=== PATIENT | female | born 1940 | race Caucasian/White ===

== ENCOUNTER 2022-09-22 11:30 | Emergency (ER) | payer MEDICARE ==
[2022-09-22] MEDS ORDERED: Adenosine 6 MG/2 ML SDV ONE (11:44)
[2022-09-22] MEDS ORDERED: Verapamil 5 MG/2 ML SDV IVPUSH ONE (11:50)
[2022-09-22] MEDS ORDERED: Adenosine 6 MG/2 ML SDV IVPUSH ONE (11:50)
[2022-09-22] MEDS ORDERED: Sodium Chloride 0.9% 1,000 ML IV SCH (12:00)
[2022-09-22 12:15] LABS: ESTIMATED GFR 57 mL/min (>60); TROPONIN I HIGH SENSITIVITY 12.5 pg/mL (<=60.3)
[2022-09-22] MEDS ORDERED: Metoprolol Succinate 25 MG Tab.ER PO ONE (12:15)
== END 2022-09-22 12:57 | disposition home or self-care (01) ==
LOC: JP.ED 11:30
DX: I47.9 Paroxysmal tachycardia, unspecified (principal); Z88.1 Allergy status to other antibiotic agents; Z88.2 Allergy status to sulfonamides; Z91.041 Radiographic dye allergy status; Z88.8 Allergy status to other drugs, medicaments and biological substances; Z79.899 Other long term (current) drug therapy
CPT/HCPCS: 36415; 80053; 84443; 84484; 85025; 93005; 96361; 96374; 96375; 99285; A9270; J0153; J7030; J3490

== ENCOUNTER 2022-12-06 18:59 | Emergency (ER) | payer MEDICARE | END 2022-12-06 21:08 | disposition home or self-care (01) | LOC: JP.ED 18:59 | DX: R10.2 Pelvic and perineal pain (principal); L98.8 Other specified disorders of the skin and subcutaneous tissue; I48.91 Unspecified atrial fibrillation; I10 Essential (primary) hypertension; Z88.1 Allergy status to other antibiotic agents; Z91.041 Radiographic dye allergy status; Z88.8 Allergy status to other drugs, medicaments and biological substances; Z79.899 Other long term (current) drug therapy | CPT/HCPCS: 81001; 87086; 87088; 87186; 99282; 99283 ==

== ENCOUNTER 2024-09-25 14:25 | Inpatient (IN) | payer MEDICARE ==
[2024-09-25] MEDS ORDERED: Sennosides/Docusate Sodium 50-8.6 MG Tab PO PRN (15:18)
[2024-09-25] MEDS ORDERED: Sodium Chloride 0.9% 10 ML Syringe FLUSH PRN (15:18)
[2024-09-25] MEDS ORDERED: Ondansetron 4 MG/2 ML SDV IV PRN (15:18)
[2024-09-25] MEDS ORDERED: Magnesium Hydroxide 400 MG/5 ML Susp 30 ML Cup PO PRN (15:18)
[2024-09-25] MEDS ORDERED: Ondansetron 4 MG Tab.DIS PO PRN (15:18)
[2024-09-25 15:38] LABS: HEMATOCRIT 35.9 % (34.3-46.0); MEAN CORPUSCULAR HEMOGLOBIN 29.4 pg (31.6-35.5); MEAN CORPUSCULAR HGB CONC 33.4 g/dL (31.6-35.5); RED BLOOD CELL COUNT 4.08 M/uL (3.77-5.24); WHITE BLOOD CELL COUNT,WBC 7.9 K/uL (3.2-11.0)
[2024-09-25 15:55] LABS: C-REACTIVE PROTEIN 13.51 mg/dL (<0.50); CREATININE 0.9 mg/dL (0.6-1.0); EST CRCL DRUG DOSING (CG) 39.87 mL/min; POTASSIUM,K 3.8 mmol/L (3.6-5.2)
[2024-09-25 15:57] LABS: ANION GAP 12.8 mmol/L (5.0-14.0)
[2024-09-25] MEDS ORDERED: cefTRIAXone 2 GM in Sodium Chloride 0.9% 50 ML IV SCH (16:00)
[2024-09-25] MEDS: Doxycycline 100 MG Cap PO SCH (17:21)
[2024-09-25] MEDS: cefTRIAXone 2 GM in Water For Injection, Sterile 20 ML IV SCH (17:28)
[2024-09-25] MEDS: guaiFENesin/Dextromethorphan 100-10 MG/5 ML Soln 10 ML Cup PO PRN (17:28)
[2024-09-25] MEDS: Lactobacillus Rhamnosus GG (Probiotic) Cap PO SCH (20:19)
[2024-09-25] MEDS: Melatonin 3 MG Tab PO PRN (20:19)
[2024-09-25] MEDS: LORazepam 0.5 MG Tab PO PRN (20:19)
[2024-09-25] MEDS: Acetaminophen 325 MG Tab PO PRN (20:20)
[2024-09-25] MEDS: Benzonatate 100 MG Cap PO PRN (20:20)
[2024-09-25] MEDS: busPIRone 5 MG Tab PO SCH (22:21)
[2024-09-25] MEDS: Sertraline 50 MG Tab PO SCH (22:22)
[2024-09-25] MEDS: Fluorometholone 0.1% Ophth Susp 5 ML Bottle EYEBOTH SCH (22:22)
[2024-09-26] MEDS: Albuterol 0.083% 2.5 MG/3 ML Neb Soln NEB PRN (06:18)
[2024-09-26] MEDS: Pantoprazole 40 MG Tab.CR PO SCH (07:49)
[2024-09-26] MEDS: Levothyroxine 50 MCG Tab PO SCH (07:49)
[2024-09-26] MEDS: Cholecalciferol (Vitamin D3) 25 MCG Tab PO SCH (09:32)
[2024-09-26] MEDS: Metoprolol Succinate 50 MG Tab.ER PO SCH (09:32)
[2024-09-26] MEDS: buPROPion 150 MG Tab.ER PO SCH (09:32)
[2024-09-26] MEDS: Fenofibrate,Micronized 67 MG Cap PO SCH (09:33)
[2024-09-26] MEDS: Losartan 50 MG Tab PO SCH (09:33)
[2024-09-26] MEDS: glipiZIDE 5 MG Tab PO SCH (09:33)
[2024-09-26] MEDS: amLODIPine 5 MG Tab PO SCH (09:33)
[2024-09-26] MEDS: Aspirin 81 MG Tab.EC PO SCH (09:33)
[2024-09-26] MEDS: Fluorometholone 0.1% Ophth Susp 5 ML Bottle EYEBOTH SCH (09:34)
[2024-09-26] MEDS: methylPREDNISolone Sodium Succinate 40 MG/1 ML SDV IVPUSH SCH (10:49)
[2024-09-26] MEDS: traZODone 50 MG Tab PO SCH (20:31)
[2024-09-27 05:28] LABS: HEMATOCRIT 33.3 % (34.3-46.0); HEMOGLOBIN 11.2 g/dL (11.2-15.5); MEAN CORPUSCULAR HEMOGLOBIN 29.3 pg (31.6-35.5); MEAN CORPUSCULAR HGB CONC 33.6 g/dL (31.6-35.5); MEAN CORPUSCULAR VOLUME 87.2 fL (81.4-99.0); RED BLOOD CELL COUNT 3.82 M/uL (3.77-5.24); WHITE BLOOD CELL COUNT,WBC 7.5 K/uL (3.2-11.0)
[2024-09-27 05:51] LABS: A/G RATIO 0.8 (1.2-2.2); ALANINE AMINOTRANSFERASE,ALT 19 U/L (12-78); ALBUMIN 2.5 g/dL (3.4-5.0); ALKALINE PHOSPHATASE 94 U/L (46-116); ASPARTATE AMNIOTRANSFERASE,AST 24 U/L (15-37); BILIRUBIN TOTAL 0.3 mg/dL (0.2-1.0); BLOOD UREA NITROGEN,BUN 21 mg/dL (7-18); C-REACTIVE PROTEIN 9.13 mg/dL (<0.50); CARBON DIOXIDE,CO2 27 mmol/L (21-32); CHLORIDE,CL 104 mmol/L (100-108); CREATININE 0.8 mg/dL (0.6-1.0); EST CRCL DRUG DOSING (CG) 44.85 mL/min; ESTIMATED GFR 74 mL/min (>60); GLUCOSE RANDOM 193 mg/dL (74-106); POTASSIUM,K 3.7 mmol/L (3.6-5.2); PROTEIN TOTAL,TP 5.8 g/dL (6.4-8.2); SODIUM,NA 138 mmol/L (140-148)
[2024-09-27 06:03] LABS: ANION GAP 10.7 mmol/L (5.0-14.0)
[2024-09-27] MEDS: ESTRACE 0.01% TOP SCH (09:13)
[2024-09-27] MEDS: ALAVERT D PO PRN (12:43)
[2024-09-27] MEDS: Loperamide 2 MG Cap PO PRN (12:43)
[2024-09-28 05:22] LABS: MEAN CORPUSCULAR HEMOGLOBIN 29.4 pg (31.6-35.5); MEAN CORPUSCULAR HGB CONC 33.3 g/dL (31.6-35.5); MEAN CORPUSCULAR VOLUME 88.2 fL (81.4-99.0); RED BLOOD CELL COUNT 3.74 M/uL (3.77-5.24); WHITE BLOOD CELL COUNT,WBC 8.8 K/uL (3.2-11.0)
[2024-09-28 05:50] LABS: A/G RATIO 0.7 (1.2-2.2); ALANINE AMINOTRANSFERASE,ALT 18 U/L (12-78); ALBUMIN 2.4 g/dL (3.4-5.0); ALKALINE PHOSPHATASE 90 U/L (46-116); ANION GAP 6.3 mmol/L (5.0-14.0); ASPARTATE AMNIOTRANSFERASE,AST 21 U/L (15-37); BILIRUBIN TOTAL 0.3 mg/dL (0.2-1.0); BLOOD UREA NITROGEN,BUN 27 mg/dL (7-18); C-REACTIVE PROTEIN 5.38 mg/dL (<0.50); CALCIUM 9.1 mg/dL (8.5-10.1); CARBON DIOXIDE,CO2 29 mmol/L (21-32); CHLORIDE,CL 105 mmol/L (100-108); CREATININE 0.8 mg/dL (0.6-1.0); EST CRCL DRUG DOSING (CG) 44.85 mL/min; ESTIMATED GFR 74 mL/min (>60); GLUCOSE RANDOM 147 mg/dL (74-106); POTASSIUM,K 3.8 mmol/L (3.6-5.2); PROTEIN TOTAL,TP 5.7 g/dL (6.4-8.2); SODIUM,NA 140 mmol/L (140-148)
[2024-09-29 05:11] LABS: HEMATOCRIT 32.4 % (34.3-46.0); HEMOGLOBIN 10.9 g/dL (11.2-15.5); MEAN CORPUSCULAR HEMOGLOBIN 29.4 pg (31.6-35.5); MEAN CORPUSCULAR HGB CONC 33.6 g/dL (31.6-35.5); MEAN CORPUSCULAR VOLUME 87.3 fL (81.4-99.0); RED BLOOD CELL COUNT 3.71 M/uL (3.77-5.24); WHITE BLOOD CELL COUNT,WBC 8.5 K/uL (3.2-11.0)
[2024-09-29 05:33] LABS: A/G RATIO 0.7 (1.2-2.2); ALANINE AMINOTRANSFERASE,ALT 19 U/L (12-78); ALBUMIN 2.2 g/dL (3.4-5.0); ALKALINE PHOSPHATASE 93 U/L (46-116); ANION GAP 8.4 mmol/L (5.0-14.0); ASPARTATE AMNIOTRANSFERASE,AST 17 U/L (15-37); BILIRUBIN TOTAL 0.3 mg/dL (0.2-1.0); BLOOD UREA NITROGEN,BUN 27 mg/dL (7-18); C-REACTIVE PROTEIN 3.23 mg/dL (<0.50); CALCIUM 8.8 mg/dL (8.5-10.1); CARBON DIOXIDE,CO2 28 mmol/L (21-32); CHLORIDE,CL 104 mmol/L (100-108); CREATININE 0.8 mg/dL (0.6-1.0); EST CRCL DRUG DOSING (CG) 44.85 mL/min; ESTIMATED GFR 74 mL/min (>60); GLUCOSE RANDOM 117 mg/dL (74-106); POTASSIUM,K 3.6 mmol/L (3.6-5.2); PROTEIN TOTAL,TP 5.4 g/dL (6.4-8.2); SODIUM,NA 140 mmol/L (140-148)
== END 2024-09-29 12:55 | disposition home health service (06) | DRG 193 ==
LOC: OBSVTOIN 14:25 → JP.ICU 14:25
PROVIDERS: ADMIT Internal Medicine; ATTEND Hospitalist
DX: J18.9 Pneumonia, unspecified organism (principal); J96.01 Acute respiratory failure with hypoxia; Z66 Do not resuscitate; I10 Essential (primary) hypertension; E11.42 Type 2 diabetes mellitus with diabetic polyneuropathy; I48.0 Paroxysmal atrial fibrillation; H54.40 Blindness, one eye, unspecified eye; R19.7 Diarrhea, unspecified; Z88.1 Allergy status to other antibiotic agents; Z88.2 Allergy status to sulfonamides; Z88.8 Allergy status to other drugs, medicaments and biological substances; Z79.82 Long term (current) use of aspirin; Z79.52 Long term (current) use of systemic steroids; Z79.84 Long term (current) use of oral hypoglycemic drugs; Z79.890 Hormone replacement therapy; Z79.899 Other long term (current) drug therapy
CPT/HCPCS: 36415; 71045; 71045-26; 80048; 80053; 85027; 86140; 94640; 97161-GP; 97530-GP; A9270-GY; J0696; J2919